=== PATIENT | male | born 1980 | race Two or more races ===

== ENCOUNTER → 2018-08-10 19:01 | Emergency (ER) | payer OTHER ==
--- NOTE | 2018-08-10 21:52 | ED ---
GI/ HPI - HPI Summary HPI Summary: This patient is a 38 year old M presenting to [facility] with a chief complaint of bright red blood with a BM a few hours prior to arrival. He reports discomfort and constipation prior bloody BM. When asked how much blood he states, "half of the toilet". He states that bleeding has stopped since. Patient denies current abdominal pain and has no other symptoms at this time. - History of Current Complaint Chief Complaint: EDGIBleed Time Seen by Provider: 08/10/18 21:48 Stated Complaint: RECTAL BLEEDING Hx Obtained From: Patient Onset/Duration: Started Hours Ago, Resolved Vaginal Bleeding Description: Bright Red Pain Characteristics: Other: - constipation/discomfort Associated Signs and Symptoms: Positive: Blood-Streaked Stool - Allergy/Home Medications Allergies/Adverse Reactions: Allergies Allergy/AdvReac Type Severity Reaction Status Date / Time MS Gluten Meal [Gluten Meal] AdvReac Severe GI Upset Verified 05/02/16 11:54 PMH/Surg Hx/FS Hx/Imm Hx Cardiovascular History: Denies: Hx Coronary Artery Disease GI History: Denies: Hx Gastrointestinal Bleed - Surgical History Surgery Procedure, Year, and Place: none Infectious Disease History: No Infectious Disease History: Reports: Hx Hepatitis - HEP A AT AGE 16 Denies: Traveled Outside the [place] in Last 30 Days - Family History Known Family History: Negative: Blood Disorder Family History: NON CONTRIBUTORY - Social History Alcohol Use: None Substance Use Type: Reports: None Smoking Status (MU): Never Smoked Tobacco Review of Systems Negative: Fever Positive: Other - melena. Negative: Abdominal Pain All Other Systems Reviewed And Are Negative: Yes Physical Exam - Summary Physical Exam Summary: Appearance: Well-appearing, Well-nourished, lying in bed comfortably Skin: Warm, dry, no obvious rash Eyes: sclera anicteric, no conjunctival pallor ENT: mucous membranes moist, pharynx appears normal Neck: Supple, nontender Respiratory: Clear to auscultation, no signs of respiratory distress Cardiovascular: Normal S1, S2. No murmurs. Normal distal pulses in tibial and radial bilaterally. Abdomen: Soft, nontender, normal active bowel sounds present Musculoskeletal: Normal, Strength/ROM Intact Neurological: A&Ox3, awake and alert, mentation is normal, speech is fluent and appropriate Psychiatric: affect is normal, does not appear anxious or depressed Rectal: Normal, negative stool coag at bedside Triage Information Reviewed: Yes Vital Signs On Initial Exam: Initial Vitals Temp Pulse Resp BP Pulse Ox 99.4 F 78 20 116/71 97 08/10/18 19:06 08/10/18 19:06 08/10/18 19:06 08/10/18 19:06 08/10/18 19:06 Vital Signs Reviewed: Yes Diagnostics - Vital Signs Vital Signs Temp Pulse Resp BP Pulse Ox 08/10/18 19:06 99.4 F 78 20 116/71 97 - Laboratory Lab Statement: Any lab studies that have been ordered have been reviewed, and results considered in the medical decision making process. GIGU Course/Dx - Course Course Of Treatment: 38 year old M presenting to [facility] with a chief complaint of bright red blood with a BM a few hours prior to arrival. He reports discomfort and constipation prior bloody BM. When asked how much blood he states , "half of the toilet". He states that bleeding has stopped since. Patient denies current abdominal pain and has no other symptoms at this time. Rectal exam is normal. Stool Coag test is negative for blood. Patient will be discharged and is agreeable with this plan. - Diagnoses Provider Diagnoses: Rectal bleeding Discharge - Sign-Out/Discharge Documenting (check all that apply): Patient Departure - discharge - Discharge Plan Condition: Good Disposition: HOME Patient Education Materials: Rectal Bleeding (ED) Referrals: Sid Oneal MD [Primary Care Provider] - If Needed Additional Instructions: As long as the blood does not recur, you do not need any further followup. I do agree with adding a fiber supplement to your diet. If the bleeding recurs you should check in with your primary care provider, and they would likely order a colonoscopy for you. - Billing Disposition and Condition Condition: GOOD Disposition: Home - Attestation Statements Document Initiated by Bessie: Yes Documenting Scribe: Magnolia Devine Provider For Whom Bessie is Documenting (Include Credential): Alexandre Call MD Scribe Attestation: Magnolia Serrato, chaimed for Alexandre Call MD on 08/11/18 at 0340. Scribe Documentation Reviewed: Yes Provider Attestation: The documentation as recorded by the Magnolia louis accurately reflects the service I personally performed and the decisions made by me, Alexandre Call MD Status of Scribe Document: Viewed
[2018-08-10 22:02] VITALS: BP 124/70
== END | disposition home or self-care (01) ==
LOC: ED 19:01
DX: K62.5 Hemorrhage of anus and rectum (principal)
CPT/HCPCS: 99281

== ENCOUNTER 2018-12-31 08:34 | Emergency (ER) | payer OTHER ==
[2018-12-31 08:49] VITALS: BP 101/58
--- NOTE | 2018-12-31 09:31 | UC ---
Respiratory Complaint HPI - HPI Summary HPI Summary: started 3 weeks ago with URI symps, over past 4 days developed fever, sinus congestion, pressure and 2 days ago started feeling R ear pain and today blowing out green nasal drainage, tried ibuprofen and cotton ball with garlic oil for ear, but still painful - History of Current Complaint Chief Complaint: UCRespiratory Stated Complaint: COUGH Time Seen by Provider: 12/31/18 09:18 Hx Obtained From: Patient Onset/Duration: Gradual Onset Timing: Constant Severity Initially: Mild Severity Currently: Moderate Pain Intensity: 6 Aggravating Factors: Deep Breaths, Recumbent Position Alleviating Factors: Nothing Associated Signs And Symptoms: Positive: Fever, Nasal Congestion, Sinus Discomfort. Negative: Wheezing, Hemoptysis, Hoarseness - Allergies/Home Medications Allergies/Adverse Reactions: Allergies Allergy/AdvReac Type Severity Reaction Status Date / Time gluten Allergy GI Upset Verified 12/31/18 08:49 Home Medications: Home Medications Ibuprofen 400 mg PO 12/31/18 [History] PMH/Surg Hx/FS Hx/Imm Hx Previously Healthy: Yes - Surgical History Surgical History: None Surgery Procedure, Year, and Place: none - Family History Known Family History: Positive: None Negative: Hypertension, Diabetes, Blood Disorder Family History: NON CONTRIBUTORY - Social History Occupation: Employed Full-time Lives: With Family Alcohol Use: None Substance Use Type: None Smoking Status (MU): Never Smoked Tobacco Review of Systems All Other Systems Reviewed And Are Negative: Yes Constitutional: Positive: Fever, Fatigue Skin: Positive: Negative Eyes: Positive: Negative ENT: Positive: Ear Ache, Sinus Congestion, Sinus Pain/Tenderness. Negative: Dental Pain, Sore Throat Respiratory: Positive: Cough. Negative: Shortness Of Breath Cardiovascular: Positive: Negative Gastrointestinal: Positive: Negative Neurovascular: Positive: Negative Neurological: Positive: Negative. Negative: Headache Psychological: Positive: Negative Is Patient Immunocompromised?: No Physical Exam Triage Information Reviewed: Yes Appearance: Well-Appearing, No Pain Distress, Well-Nourished Vital Signs: Initial Vital Signs Temp 98.2 F 12/31/18 08:45 Pulse 61 12/31/18 08:45 Resp 18 12/31/18 08:45 BP 101/58 12/31/18 08:45 Pulse Ox 100 12/31/18 08:45 Vital Signs Reviewed: Yes Eyes: Positive: Conjunctiva Clear ENT: Positive: Pharynx normal, Nasal congestion, TM dull - Right TM, left TM normal, TM red, Sinus tenderness Neck exam: Normal Neck: Positive: No Lymphadenopathy Respiratory Exam: Normal Respiratory: Positive: Lungs clear Cardiovascular Exam: Normal Cardiovascular: Positive: RRR Neurological Exam: Normal Neurological: Positive: Alert Psychological Exam: Normal Skin Exam: Normal Skin: Negative: Rashes Respiratory Course/Dx - Differential Dx/Diagnosis Differential Diagnosis/HQI/PQRI: Bronchitis, Lower Resp Infection, Sinusitis Provider Diagnosis: Otitis media, Sinusitis Discharge - Sign-Out/Discharge Documenting (check all that apply): Patient Departure All imaging exams completed and their final reports reviewed: No Studies - Discharge Plan Condition: Good Disposition: HOME Prescriptions: Amoxicillin/Clavulanate TAB* [Augmentin TAB 875*] 875 mg PO BID #20 tab Patient Education Materials: Sinusitis (ED), Ear Infection (ED) Referrals: Sid Oneal MD [Primary Care Provider] - 3 Days (if no better) Additional Instructions: drink plenty of fluids and rest start antibiotic and take as directed over the counter ibuprofen and tylenol as directed for pain and fever - Billing Disposition and Condition Condition: GOOD Disposition: Home - Attestation Statements Provider Attestation: I was available for consult. This patient was seen by the SH[facility]. The patient was not presented to, seen by, or examined by me. -Vincent
== END 2018-12-31 09:43 | disposition home or self-care (01) ==
LOC: UCEAST 08:34
DX: J32.9 Chronic sinusitis, unspecified (principal); H66.91 Otitis media, unspecified, right ear; Z91.018 Allergy to other foods
CPT/HCPCS: 99212; G0463